=== PATIENT | male | born 1990 | race Caucasian/White ===

== ENCOUNTER 2017-01-19 11:02 | Emergency (ER) | payer MEDICAID, OTHER ==
[~2017-01-19] VITALS: Ht 177.8 cm; Wt 70.8 kg
[~2017-01-19 11:02] MED LIST: CLON0.5T4 PO; LORA-258 PO; PARO-41 PO; QUET50TA13 PO
[2017-01-19 11:11] VITALS: BP_SYST 127
[2017-01-19] MEDS ORDERED: ONDANSETRON 4 MG ODT TAB PO ONE (12:00)
[2017-01-19] MEDS ORDERED: LORazepam 2 MG/ML VIAL (FOR ER USE) IVP ONE (12:15)
[2017-01-19 12:43] LABS: EOSINOPHILS # (AUTO) 0.1 K/uL (0.0-0.4); MEAN CORPUSCULAR HEMOGLOBIN 31 pg (27-31); MONOCYTES # (AUTO) 1.1 K/uL (0.0-1.0)
[2017-01-19 12:45] LABS: CREATININE 1.08 mg/dL (0.55-1.30); POTASSIUM 3.9 mmol/L (3.5-5.1)
[2017-01-19 12:49] LABS: BASOPHILS # (AUTO) 0.2 K/uL (0.0-0.2); BASOPHILS % (AUTO) 2.8 % (0.0-2.0); EOSINOPHILS % (AUTO) 1.1 % (0.0-4.0); HEMATOCRIT 46.3 % (36-54); HEMOGLOBIN 15.4 g/dL (14.0-18.0); LYMPHOCYTES # (AUTO) 1.8 K/uL (1.0-5.5); LYMPHOCYTES % (AUTO) 23.6 % (20.5-51.5); MEAN CORPUSCULAR HGB CONC 33 % (32-36); MEAN CORPUSCULAR VOLUME 93 fL (79.0-98.0); MONOCYTES % (AUTO) 14.3 % (1.7-9.3); NEUTROPHILS # (AUTO) 4.3 K/uL (1.8-7.7); NEUTROPHILS % (AUTO) 58.2 % (40.0-70.0); PLATELET COUNT (AUTO) 276 K/uL (130-430); RED BLOOD CELL COUNT(AUTO) 4.98 MIL/uL (4.2-6.2); RED CELL DISTRIBUTION WIDTH 13.1 % (9.0-15.0); WHITE BLOOD COUNT (AUTO) 7.5 K/uL (4.8-10.8)
[2017-01-19] MEDS ORDERED: KETOROLAC TROMETHAMINE 30 MG VIAL IVP ONE (13:45)
[2017-01-19 13:48] VITALS: BP_SYST 114
== END 2017-01-19 13:48 | disposition home or self-care (01) ==
LOC: SED 11:02
DX: S80.211A Abrasion, right knee, initial encounter (principal); S50.811A Abrasion of right forearm, initial encounter; S09.90XA Unspecified injury of head, initial encounter; J45.909 Unspecified asthma, uncomplicated; F41.9 Anxiety disorder, unspecified; F32.9 Major depressive disorder, single episode, unspecified; F17.210 Nicotine dependence, cigarettes, uncomplicated; Z79.899 Other long term (current) drug therapy; V19.9XXA Pedal cyclist (driver) (passenger) injured in unspecified traffic accident, initial encounter; Y93.89 Activity, other specified; Y92.89 Other specified places as the place of occurrence of the external cause; Y99.8 Other external cause status
CPT/HCPCS: 36415; 70450; 80048; 85025; 96374; 96375; 99285; J1885; J2060; Q0162

== ENCOUNTER 2017-05-15 11:06 | Emergency (ER) | payer MEDICAID ==
[~2017-05-15] VITALS: Ht 180.3 cm; Wt 70.8 kg
[2017-05-15 11:06] VITALS: BP_SYST 127
[2017-05-15] MEDS ORDERED: KETOROLAC TROMETHAMINE 60 MG/2 ML VIAL IM ONE (11:30)
[2017-05-15 11:58] LABS: BASOPHILS % (AUTO) 0.7 % (0.0-2.0); EOSINOPHILS # (AUTO) 0.1 K/uL (0.0-0.4); EOSINOPHILS % (AUTO) 2.1 % (0.0-4.0); HEMATOCRIT 43.8 % (36-54); HEMOGLOBIN 14.7 g/dL (14.0-18.0); LYMPHOCYTES # (AUTO) 1.7 K/uL (1.0-5.5); LYMPHOCYTES % (AUTO) 30.3 % (20.5-51.5); MEAN CORPUSCULAR HEMOGLOBIN 32 pg (27-31); MEAN CORPUSCULAR HGB CONC 34 % (32-36); MEAN CORPUSCULAR VOLUME 95 fL (79.0-98.0); MONOCYTES # (AUTO) 0.6 K/uL (0.0-1.0); MONOCYTES % (AUTO) 11.3 % (1.7-9.3); NEUTROPHILS # (AUTO) 3.1 K/uL (1.8-7.7); NEUTROPHILS % (AUTO) 55.6 % (40.0-70.0); PLATELET COUNT (AUTO) 295 K/uL (130-430); RED CELL DISTRIBUTION WIDTH 12.6 % (9.0-15.0); WHITE BLOOD COUNT (AUTO) 5.5 K/uL (4.8-10.8)
[2017-05-15 11:59] LABS: CALCIUM 9.2 mg/dL (8.4-11.0); CREATININE 0.89 mg/dL (0.55-1.30)
[2017-05-15 12:04] LABS: ALBUMIN 3.7 g/dL (3.4-4.8); TOTAL BILIRUBIN 0.4 mg/dL (0.0-1.0)
[2017-05-15 13:09] VITALS: BP_SYST 128
== END 2017-05-15 13:09 | disposition home or self-care (01) ==
LOC: SED 11:06
DX: F41.9 Anxiety disorder, unspecified (principal); J45.909 Unspecified asthma, uncomplicated; F43.10 Post-traumatic stress disorder, unspecified; Z71.6 Tobacco abuse counseling
CPT/HCPCS: 36415; 71010; 80053; 84484; 85025; 85379; 93005; 96372; 99285; J1885

== ENCOUNTER 2018-03-17 01:38 | Inpatient (IN) | payer MEDICAID ==
[~2018-03-17] VITALS: Ht 175.3 cm; Wt 67.6 kg
[2018-03-17] VITALS (10 sets, daily range): BP systolic 92–124
[~2018-03-17 01:38] MED LIST changes: +CLON0.5T12 PO; -CLON0.5T4 PO; +QUET50TA PO; -QUET50TA13 PO
[2018-03-17] MEDS ORDERED: LORazepam 2 MG/ML VIAL (FOR ER USE) IVP ONE ×3 (02:00→04:30)
[2018-03-17] MEDS ORDERED: NACL 0.9% 1,000 ML IV ONE (02:00)
[2018-03-17] MEDS ORDERED: LORazepam 2 MG/ML VIAL (FOR ER USE) ONE (02:08)
[2018-03-17 02:44] LABS: HEMATOCRIT 41.5 % (36-54); MEAN CORPUSCULAR HEMOGLOBIN 32 pg (27-31); MEAN CORPUSCULAR HGB CONC 34 % (32-36); MEAN CORPUSCULAR VOLUME 96 fL (79.0-98.0); PLATELET COUNT (AUTO) 301 K/uL (130-430); RED BLOOD CELL COUNT(AUTO) 4.33 MIL/uL (4.2-6.2); RED CELL DISTRIBUTION WIDTH 12.8 % (9.0-15.0); WHITE BLOOD COUNT (AUTO) 9.3 K/uL (4.8-10.8)
[2018-03-17 02:45] LABS: CALCIUM 9.2 mg/dL (8.4-11.0); CREATININE 0.83 mg/dL (0.55-1.30); POTASSIUM 3.5 mmol/L (3.5-5.1)
[2018-03-17 02:50] LABS: ALBUMIN 3.8 g/dL (3.4-4.8); TOTAL BILIRUBIN 0.5 mg/dL (0.0-1.0)
[2018-03-17 03:20] LABS: BARBITURATE, URINE NEGATIVE (NEG <=200); BENZODIAZEPINE, URINE NEGATIVE (NEG <=150); CANNABINOID, URINE NEGATIVE (NEG <=50); COCAINE, URINE NEGATIVE (NEG <=150); METHAMPHETAMINES SCREEN,URINE NEGATIVE (NEG <=500); OPIATE, URINE NEGATIVE (NEG <=100); PHENCYCLIDINE SCREEN,URINE NEGATIVE (NEG <=25); UR TRICYCLIC ANTIDEPRESSANTS NEGATIVE (NEG <=300); URINE AMPHETAMINE NEGATIVE (NEG <=500); URINE METHADONE NEGATIVE (NEG <=200); URINE OXYCODONE SCREEN NEGATIVE (NEG <=100); URINE PROPOXYPHENE SCREEN NEGATIVE (NEG <=300)
[2018-03-17 04:15] LABS: BASOPHILS % (MANUAL) 0 % (0-2); EOSINOPHILS % (MANUAL) 1 % (0-7); LYMPHOCYTES % (MANUAL) 31 % (20-46); MONOCYTES % (MANUAL) 6 % (0-11)
[2018-03-17] MEDS ORDERED: D5W IV ONE (04:15)
[2018-03-17] MEDS ORDERED: VALPROATE SODIUM IV ONE (04:15)
[2018-03-17] MEDS ORDERED: VALPROATE SODIUM 100 MG/ML VIAL (DEPACON) IV ONE (04:25)
[2018-03-17] MEDS ORDERED: ACETAMINOPHEN 650 MG SUPP.RECT RC PRN (05:00)
[2018-03-17] MEDS ORDERED: ACETAMINOPHEN 325 MG TABLET PO PRN (12:00)
[2018-03-17] MEDS ORDERED: LORazepam 1 MG TABLET PO PRN (12:15)
[2018-03-17] MEDS: FAMOTIDINE 20 MG TABLET PO ONE ×2 (12:25→12:29)
[2018-03-17] MEDS: LORazepam 2 MG/ML VIAL IVP PRN ×2 (16:11→20:01)
[2018-03-17] MEDS: DIVALPROEX SODIUM 500 MG TABLET( DEPAKOTE) PO SCH (21:06)
[2018-03-17] MEDS: PARoxetine HCL 20 MG TABLET PO SCH ×2 (21:06→21:14)
[2018-03-17] MEDS: QUEtiapine FUMARATE 25 MG TABLET PO SCH ×2 (21:07→21:14)
[2018-03-18 07:55] VITALS: BP_SYST 93
[2018-03-18] MEDS: DIVALPROEX SODIUM 500 MG TABLET( DEPAKOTE) PO SCH (08:42)
[2018-03-18] MEDS: FAMOTIDINE 20 MG TABLET PO SCH (08:42)
[2018-03-18] MEDS ORDERED: DIVALPROEX SODIUM 250 MG TABLET(DEPAKOTE) PO ONE (11:30)
[2018-03-18] MEDS: LORazepam 2 MG/ML VIAL IVP PRN ×3 (12:14→20:56)
[2018-03-18 12:23] VITALS: BP_SYST 121
[2018-03-18 14:28] VITALS: BP_SYST 125
[2018-03-18 16:06] VITALS: BP_SYST 129
[2018-03-18 20:00] VITALS: BP_SYST 110
[2018-03-18] MEDS: DIVALPROEX SODIUM 250 MG TABLET(DEPAKOTE) PO SCH (21:02)
[2018-03-18] MEDS: PARoxetine HCL 20 MG TABLET PO SCH (21:45)
[2018-03-18] MEDS: QUEtiapine FUMARATE 25 MG TABLET PO SCH (21:46)
[2018-03-19] VITALS: BP_SYST 121
[2018-03-19 08:06] VITALS: BP_SYST 134
[2018-03-19] MEDS: LORazepam 2 MG/ML VIAL IVP PRN ×2 (09:25→16:03)
[2018-03-19] MEDS: FAMOTIDINE 20 MG TABLET PO SCH (09:40)
[2018-03-19] MEDS: DIVALPROEX SODIUM 250 MG TABLET(DEPAKOTE) PO SCH (09:41)
[2018-03-19 12:38] VITALS: BP_SYST 103
[2018-03-19 16:50] VITALS: BP_SYST 109
[2018-03-19 17:58] VITALS: BP_SYST 109
[2018-03-19] MEDS ORDERED: DIVA500T7 PO (18:15)
== END 2018-03-19 18:30 | disposition home or self-care (01) | DRG 53 ==
LOC: SED 01:38 → SIC 04:56 → STU 15:12 → SMU 03-19 16:34
PROVIDERS: ADMIT Internal Medicine; ATTEND Internal Medicine
DX: G40.909 Epilepsy, unspecified, not intractable, without status epilepticus (principal); E87.1 Hypo-osmolality and hyponatremia; F32.9 Major depressive disorder, single episode, unspecified
CPT/HCPCS: 36415; 70450-TC; 80053; 80164-TC; 80307; 85007; 85027; 87081; 95816; 96361; 96365; 96375; 96376; 99285; J2060; J7030

== ENCOUNTER 2018-03-19 20:34 | Inpatient (IN) | payer MEDICAID ==
[~2018-03-19] VITALS: Ht 180.3 cm; Wt 68.0 kg
[~2018-03-19 20:34] MED LIST changes: +DIVA500T7 PO
[2018-03-19 20:36] VITALS: BP_SYST 118
--- NOTE | 2018-03-19 20:36 | NUR ---
Placed in room 5 . Placed on cardiac nurse specialist, blood pressure machine and pulse oximeter. To gown for exam. Side rails up. Report given to Evita CHANEY.
--- NOTE | 2018-03-19 20:38 | NUR ---
ER Dr. Mayfield at bedside examining patient.
[2018-03-19] MEDS ORDERED: NACL 0.9% 1,000 ML IV ONE (20:41)
[2018-03-19] MEDS ORDERED: ASPIRIN 81 MG TAB.CHEW PO ONE (21:00)
[2018-03-19 21:12] LABS: BASOPHILS # (AUTO) 0.1 K/uL (0.0-0.2); BASOPHILS % (AUTO) 1.3 % (0.0-2.0); EOSINOPHILS # (AUTO) 0.1 K/uL (0.0-0.4); EOSINOPHILS % (AUTO) 1.8 % (0.0-4.0); HEMATOCRIT 46.6 % (36-54); LYMPHOCYTES # (AUTO) 1.3 K/uL (1.0-5.5); LYMPHOCYTES % (AUTO) 20.7 % (20.5-51.5); MEAN CORPUSCULAR HEMOGLOBIN 31 pg (27-31); MEAN CORPUSCULAR HGB CONC 32 % (32-36); MEAN CORPUSCULAR VOLUME 96 fL (79.0-98.0); MONOCYTES # (AUTO) 0.8 K/uL (0.0-1.0); MONOCYTES % (AUTO) 12.2 % (1.7-9.3); NEUTROPHILS # (AUTO) 4.1 K/uL (1.8-7.7); PLATELET COUNT (AUTO) 337 K/uL (130-430); RED BLOOD CELL COUNT(AUTO) 4.87 MIL/uL (4.2-6.2); RED CELL DISTRIBUTION WIDTH 12.7 % (9.0-15.0); WHITE BLOOD COUNT (AUTO) 6.4 K/uL (4.8-10.8)
[2018-03-19 21:17] LABS: CALCIUM 10.1 mg/dL (8.4-11.0); CHLORIDE 105 mmol/L (98-107); CREATININE 1.04 mg/dL (0.55-1.30); GLUCOSE 96 mg/dL (70-99); POTASSIUM 4.9 mmol/L (3.5-5.1); SODIUM SERUM 135 mmol/L (136-145); UREA NITROGEN, BLOOD 21 mg/dL (8-21)
[2018-03-19 21:21] LABS: ALANINE AMINOTRANSFERASE 20 U/L (12-78); ALBUMIN 4.1 g/dL (3.4-4.8); ANION GAP < 3 (5-15); ASPARTATE AMINOTRANSFERASE 12 U/L (10-37); GFR AFRICAN AMERICAN 109 mL/min (>90); TOTAL BILIRUBIN 0.2 mg/dL (0.0-1.0); VALPROIC ACID 47 ug/mL (50-100)
--- NOTE | 2018-03-19 21:25 | NUR ---
patient brought in by [facility] s/p seizure. per school representatives patient had two witnessed tonic clonic seizures. patient is now alert, oriented, no recollection of seizure or travel to hospital. is on phone with family.
[2018-03-19] MEDS ORDERED: DIVALPROEX SODIUM 250 MG TABLET(DEPAKOTE) PO ONE (21:45)
[2018-03-19 22:07] LABS: BARBITURATE, URINE NEGATIVE (NEG <=200); METHAMPHETAMINES SCREEN,URINE NEGATIVE (NEG <=500); URINE AMPHETAMINE NEGATIVE (NEG <=500); URINE METHADONE NEGATIVE (NEG <=200)
[2018-03-19 22:08] LABS: BENZODIAZEPINE, URINE POSITIVE (NEG <=150); CANNABINOID, URINE NEGATIVE (NEG <=50); COCAINE, URINE NEGATIVE (NEG <=150); OPIATE, URINE NEGATIVE (NEG <=100); PHENCYCLIDINE SCREEN,URINE NEGATIVE (NEG <=25); UR TRICYCLIC ANTIDEPRESSANTS NEGATIVE (NEG <=300); URINE OXYCODONE SCREEN NEGATIVE (NEG <=100); URINE PROPOXYPHENE SCREEN NEGATIVE (NEG <=300)
--- NOTE | 2018-03-19 22:20 | NUR ---
dr hernández speaking to dr yang regarding patient status
--- NOTE | 2018-03-19 22:36 | NUR ---
Patient calmly resting in ER bed, no signs of distress noted. Vital signs are stable at this time; patient also denies any other complaints.
--- NOTE | 2018-03-19 22:40 | NUR ---
ADMISSION NOTE Received patient from ER via azul, received report from LUBA CHANEY. Patient admitted with diagnosis of SEUIZURES. Patient oriented to hospital routine, call light, toileting and safety-patient verbalized understanding.
[2018-03-19 22:41] VITALS: BP_SYST 123
[2018-03-19 22:50] VITALS: BP_SYST 123
[2018-03-19] MEDS ORDERED: HYDROcodone/ACETAMIN 10-325 MG TAB PO PRN (23:00)
[2018-03-19] MEDS ORDERED: HYDROcodone/ACETAMIN 5-325 MG TAB (NORCO/ VICODIN) PO PRN (23:00)
[2018-03-19] MEDS ORDERED: ONDANSETRON HCL 4 MG/2 ML VIAL IVP PRN (23:00)
[2018-03-19] MEDS ORDERED: ACETAMINOPHEN 325 MG TABLET PO PRN (23:00)
--- NOTE | 2018-03-19 23:16 | NUR ---
Bed alarm refused: Patient refused bed alarm despite education regarding patient safety. Bed is locked in lowest position, side rails raised, seizure pads applied. Seizure, safety, and fall precautions remain in place. Call light is with patient. Will continue monitoring.
--- NOTE | 2018-03-19 23:20 | NUR ---
CONSULT CONSULT CALLED FOR DR.ALI ROSS I SPOKE WITH PRASHANTH [employer] REASON FOR CONSULT: SEIZURES REQUESTING CONSULT: SHAWN CRAIG [employer] MUTUAL TICKET CHECKER PHONE NUMBER: [phone] Addendum: 03/19/18 at 2329 by Sri Samuels SD/ REQUESTING CONSULT: SHAWN GARCIA
--- NOTE | 2018-03-19 23:55 | NUR ---
Patient admitted to care of dr hernández, med surg tele unit, room 102. Belongings list completed, all belongings sent with patient. friend at bedside. patient is stable, alert, oriented, no signs of distress. Summary report printed. Report given at bedside.
--- NOTE | 2018-03-20 00:05 | NUR ---
Spoke with Dr. Sully Burk: Clarified Ativan orders with MD as patient has 1 MG Ativan IVP and 0.5 MG Ativan PO ordered, both with PRN reason for anxiety. MD ordered to change PRN reason for 1 MG Ativan IVP to "Seizures". RN will edit order.
--- NOTE | 2018-03-20 00:21 | NUR ---
Seizure: Patient had a seizure at this time with a duration of 2 minutes 40 seconds. 1 MG Ativan IVP administered per MD order to patient's left AC IV site. Seizure ended upon administration of medication. Following the seizure, patient is alert and oriented x4; however, patient is unable to recollect memories from the past several days. Safety, fall, seizure precautions in place. Will continue monitoring. Addendum: 03/20/18 at 0052 by Kin Sarah RN Per charge nurse Uriel RN, patient showed no changes on the tele monitor.
[2018-03-20] MEDS: LORazepam 2 MG/ML VIAL IVP PRN ×3 (00:24→17:48)
--- NOTE | 2018-03-20 02:14 | NUR ---
Rounds: Patient is sleeping, does not show any signs or symptoms of acute distress. Call light is with patient. Safety, seizure, fall precautions in place. Will continue monitoring.
--- NOTE | 2018-03-20 04:02 | NUR ---
Rounds: Patient is sleeping, no acute distress noted. Breathing even and unlabored. Seizure, safety, fall, contact iso precautions in place. Will continue monitoring.
--- NOTE | 2018-03-20 06:09 | NUR ---
Closing note: Patient is sleeping, no acute distress exhibited. All needs met and attended to. Safety, seizure, fall precautions in place. Will continue monitoring.
[2018-03-20] MEDS: NORMAL SALINE 5 ML DISP.SYRIN IVF SCH ×3 (06:52→21:41)
[2018-03-20 06:53] LABS: HEMATOCRIT 44.3 % (36-54); HEMOGLOBIN 14.5 g/dL (14.0-18.0); MEAN CORPUSCULAR HEMOGLOBIN 32 pg (27-31); MEAN CORPUSCULAR HGB CONC 33 % (32-36); MEAN CORPUSCULAR VOLUME 97 fL (79.0-98.0); PLATELET COUNT (AUTO) 306 K/uL (130-430); RED BLOOD CELL COUNT(AUTO) 4.58 MIL/uL (4.2-6.2); RED CELL DISTRIBUTION WIDTH 12.9 % (9.0-15.0); WHITE BLOOD COUNT (AUTO) 6.8 K/uL (4.8-10.8)
[2018-03-20 07:29] LABS: CREATININE 0.83 mg/dL (0.55-1.30); POTASSIUM 3.6 mmol/L (3.5-5.1)
--- NOTE | 2018-03-20 07:34 | NUR ---
PATIENT IS A/OX4. NO SZ ACTIVITY AT THIS TIME, SR ON MONITOR. IV ON LEFT AC, #18, SL. SZ PRECUATIONS ARE MAINTAINED; PATIENT IS ADVISED TO STAY IN BED, BED ALARM ON, BED LOCKED AT THE LOWEST POSITION, WILL CONTINUE TO MONITOR.
[2018-03-20 08:00] VITALS: BP_SYST 124
[2018-03-20] MEDS ORDERED: DIVALPROEX SODIUM 250 MG TABLET(DEPAKOTE) PO SCH (09:00)
--- NOTE | 2018-03-20 09:48 | NUR ---
Patient is seen ambulating to the bathroom. He is instructed to call the nurse when he has to go to bathroom. Bed alarm on.
[2018-03-20 10:09] LABS: BASOPHILS % (MANUAL) 0 % (0-2); EOSINOPHILS % (MANUAL) 6 % (0-7); LYMPHOCYTES % (MANUAL) 31 % (20-46); MONOCYTES % (MANUAL) 11 % (0-11)
[2018-03-20 11:29] VITALS: BP_SYST 110
--- NOTE | 2018-03-20 12:21 | NUR ---
Patient has a seizure that last about 3 minutes. Ativan 1mg is given IVP. Will reassess.
[2018-03-20 15:08] VITALS: BP_SYST 122
--- NOTE | 2018-03-20 17:30 | NUR ---
PATIENT HAD TWO SEIZURES WITH THE LAST 15 MINUTES. FIRST ONE LASTED ABOUT 5 MINUTES FROM [id number]; SECOND LASTED FROM [id number]. V/S STABLE AT THIS TIME. PATIENT IS ASLEEP.
--- NOTE | 2018-03-20 18:11 | NUR ---
PAGED PAGED ALLYN CRAIG AT [phone] SPOKE WITH DIMA.
--- NOTE | 2018-03-20 18:18 | NUR ---
PATIENT HAD ANOTHER SEIZURE LASTING FROM [id number]. V/S IS STABLE DURING THIS TIME. PATIENT IS ASLEEP AND SOMNOLENT IN THE TIME.
--- NOTE | 2018-03-20 18:48 | NUR ---
DR. BARNES CALLED BACK. ORDERS WERE GIVEN.
--- NOTE | 2018-03-20 18:54 | NUR ---
SITTER IS ORDERED BY DR. BARNES, BUT [employer] FINANCIAL APPLICATION DEVELOPER IS UNABLE TO FIND A SITTER AT THIS TIME. CHARGE NURSE IS AWARE.
[2018-03-20 19:10] VITALS: BP_SYST 112
--- NOTE | 2018-03-20 19:10 | NUR ---
Initial Notes Received patient in bed eating with friends around. Patient is awake alert oriented x4. No distress noted at this time. IV noted to L a/c g18 no infiltrate and with good blood return. Call light in reach with seizure pads to side rails intact. Discuss plan of care with patient and verbalize understanding, will cont to monitor.
[2018-03-20] MEDS: QUEtiapine FUMARATE 25 MG TABLET PO SCH (20:03)
[2018-03-20] MEDS: DIVALPROEX SODIUM 500 MG TABLET( DEPAKOTE) PO SCH (20:04)
[2018-03-20] MEDS ORDERED: PARoxetine HCL 20 MG TABLET PO SCH (21:00)
--- NOTE | 2018-03-20 21:10 | NUR ---
Move to Rm 105A Patient was move to 105 close to nursing station for safety. No c/o pain and no s/s of any distress noted. Call light in reach, bed alarm on, will cont to monitor.
--- NOTE | 2018-03-20 23:10 | NUR ---
Rounds Patient is resting at this time. No c/o pain and no s/s seizure noted. Call light in reach, seizure pads in place, will cont to monitor.
[2018-03-21] VITALS (13 sets, daily range): BP systolic 93–118
--- NOTE | 2018-03-21 01:10 | NUR ---
Rounds Patient is resting comfortably in bed at this time. Refuse any assistance at this time. No c/o pain and no s/s of any distress noted. Call light in reach, will cont to monitor.
--- NOTE | 2018-03-21 03:10 | NUR ---
Rounds Patient is resting at this time. No c/o pain and no s/s of any distress noted. Call light in reach, will cont to monitor.
[2018-03-21] MEDS: NORMAL SALINE 5 ML DISP.SYRIN IVF SCH ×3 (05:23→22:03)
--- NOTE | 2018-03-21 05:29 | NUR ---
Episode of seizure Patient had a 3 mins seizure from 520 to 523. Patient's BUE and BLE was hard like on contracted position during the seizure. This nurse made sure patient was safe not to hit his head with hard object, seizure pads intact. Patient went back to sleep after. Will cont to monitor patient.
--- NOTE | 2018-03-21 06:39 | NUR ---
End of shift notes Patient is resting in bed at this time with sitter at bedside. No s/s of any distress noted. All needs met and anticipated by noc nurse. Bed alarm on, seizure pads intact with side rails up x3 and bed in low position. Will endorse to AM shift.
--- NOTE | 2018-03-21 07:51 | NUR ---
Opening Note received report from clinical specialist RN, pt resting in bed, A&Ox4, respirations even and unlabored on room air, denies any pain or SOB, no acute distress noted, IV site clean, dry, and intact, side rails padded, pt educated on use of call light and asked to call for assistance, pt verbalized understanding, call light in reach, bed in low position, bed alarm on, room close to nurses station, sitter at bedside, fall, aspiration, and seizure precautions in place.
[2018-03-21] MEDS: DIVALPROEX SODIUM 500 MG TABLET( DEPAKOTE) PO SCH (08:11)
--- NOTE | 2018-03-21 08:16 | NUR ---
Medication pt educated on medication use and side effects, pt verbalized understanding, tolerated medication administration well, no acute distress noted, pt sitting up in bed eating breakfast, sitter at bedside, fall, aspiration, and seizure precautions in place.
[2018-03-21 08:36] LABS: RED BLOOD CELL COUNT(AUTO) 4.61 MIL/uL (4.2-6.2)
[2018-03-21 08:38] LABS: BASOPHILS # (AUTO) 0.2 K/uL (0.0-0.2); BASOPHILS % (AUTO) 3.1 % (0.0-2.0); EOSINOPHILS # (AUTO) 0.3 K/uL (0.0-0.4); EOSINOPHILS % (AUTO) 4.2 % (0.0-4.0); HEMATOCRIT 44.4 % (36-54); HEMOGLOBIN 14.2 g/dL (14.0-18.0); LYMPHOCYTES # (AUTO) 2.2 K/uL (1.0-5.5); LYMPHOCYTES % (AUTO) 29.6 % (20.5-51.5); MEAN CORPUSCULAR HEMOGLOBIN 31 pg (27-31); MEAN CORPUSCULAR HGB CONC 32 % (32-36); MEAN CORPUSCULAR VOLUME 96 fL (79.0-98.0); MONOCYTES # (AUTO) 0.7 K/uL (0.0-1.0); NEUTROPHILS % (AUTO) 54.1 % (40.0-70.0); PLATELET COUNT (AUTO) 300 K/uL (130-430); RED CELL DISTRIBUTION WIDTH 12.8 % (9.0-15.0); WHITE BLOOD COUNT (AUTO) 7.4 K/uL (4.8-10.8)
[2018-03-21 08:51] LABS: CALCIUM 9.3 mg/dL (8.4-11.0); CREATININE 0.82 mg/dL (0.55-1.30); POTASSIUM 4.4 mmol/L (3.5-5.1)
--- NOTE | 2018-03-21 09:27 | NUR ---
RN Rounds pt sitting up, friend at bedside, pt denies any pain, no seizure activity observed at this time, sitter at bedside, fall, aspiration, and seizure precautions in place.
--- NOTE | 2018-03-21 10:20 | NUR ---
RN Rounds pt resting in bed, friend at bedside, pt denies any pain, no acute distress noted, no seizure activity noted, fall, aspiration, and seizure precautions in place.
--- NOTE | 2018-03-21 11:54 | NUR ---
RN Rounds pt sleeping in bed, respirations even and unlabored, no acute distress noted, no seizure activity noted, sitter at bedside, fall, aspiration, and seizure precautions in place.
[2018-03-21] MEDS: LORazepam 2 MG/ML VIAL IVP PRN (13:35)
--- NOTE | 2018-03-21 13:40 | NUR ---
Seizure pt having seizure activity, timed from 2650-9556, upper and lower extremities contracted inward, ativan 2mg IVP given, seizure activity stopped, pt opened eyes, pt verbal and responding to commands, BP 112/61, HR 87, O2Sat 98%, respirations 17, no acute distress noted, Dr. Martinez doing rounds, informed of pt valproic acid level 122 and recent seizure, per MD orders to transfer pt to ICU.
--- NOTE | 2018-03-21 14:15 | NUR ---
transfer to ICU pt taken to ICU, report given to Carmita RN, pt stable, tele monitor removed, pt on ICU monitors, pt stable, pt called sister Jayce and notified her of his transfer to ICU bed 8, all belongings sent with pt.
--- NOTE | 2018-03-21 14:15 | NUR ---
Transfer to ICU Received pt AAOx4, able to verbalize needs. Respirations even and unlabored on RA. Pt states no pain or distress at this time. Pt states, "I don't remember anything before my seizure," and "Paxil makes me go crazy." Skin warm and dry. IV SL site intact, patent, no infiltration noted. Oriented pt to room and call light. Padded side rails in place for seizure precaution. Bed locked in lowest position. Call light in reach. Will continue to monitor.
[2018-03-21] MEDS: VALPROATE SODIUM 500 MG in D5W 100 ML IV SCH ×2 (15:31→22:03)
--- NOTE | 2018-03-21 16:28 | NUR ---
Pt sitting in bed conversing with friends. Pt states no pain or distress at this time. IV site intact, patent, no infiltration noted.
--- NOTE | 2018-03-21 18:18 | NUR ---
PAGED I PAGED DR. SHAWN Virk @ [phone] SEND A MESSAGE LETTING HIM KNOW THAT HIS PATIENT VALENTIN TY IS IN ICU CHARGE NURSE REQUESTED FOR ME TO CALL SHAWN CRAIG
--- NOTE | 2018-03-21 19:15 | NUR ---
Closing/Endorsement Pt asleep, arousable. IV site intact, patent, no infiltration noted. Had 100% of dinner. Bed locked in lowest position. Call light in reach. Endorsed plan of care to Vickie CHANEY.
--- NOTE | 2018-03-21 19:17 | NUR ---
OPENING NOTE Received patient resting on the bed with eyes closed. No acute distress. Respiration even and unlabored. Skin warm and dry to touch. SL intact to RFA, no redness, no swelling. Family at bedside. Safety measure maintain. Bed locked in low position, padded side rails up, bed alarm on. Call light within reached. Will continue to monitor.
[2018-03-21] MEDS: QUEtiapine FUMARATE 25 MG TABLET PO SCH (21:15)
[2018-03-21] MEDS: levETIRAcetam 1,000 MG in NS 100 ML IV SCH (21:15)
--- NOTE | 2018-03-21 21:15 | NUR ---
SCHEDULE MED GIVEN Patient resting on the bed. No acute distress. Respiration even and unlabored. Schedule med given. Educated the medication Keppra, the indication and possible side effect, verbally understanding. Safety measure maintained. Bed locked in low position, padded side rails up. Call light within reached. Continue to monitor.
--- NOTE | 2018-03-21 23:00 | NUR ---
PATIENT'S FRIENDS VISITED
[2018-03-22] VITALS (23 sets, daily range): BP systolic 88–119
--- NOTE | 2018-03-22 00:35 | NUR ---
ROUND Patient resting on the bed with eyes closed. No acute distress. IV intact. Padded side rails up, bed locked in low position. Call light within reached. Continue to monitor.
--- NOTE | 2018-03-22 03:27 | NUR ---
ROUND Patient sleeping at this time. No acute distress. Respiration even and unlabored. VS stable. No seizure activity. Seizure precaution maintained. Padded side rails up, bed locked in low position, bed alarm on. Call light within reached. Continue to monitor.
[2018-03-22] MEDS: VALPROATE SODIUM 500 MG in D5W 100 ML IV SCH ×3 (05:39→22:01)
[2018-03-22] MEDS: NORMAL SALINE 5 ML DISP.SYRIN IVF SCH ×3 (05:39→22:02)
[2018-03-22 06:47] LABS: BASOPHILS # (AUTO) 0.1 K/uL (0.0-0.2); BASOPHILS % (AUTO) 1.9 % (0.0-2.0); EOSINOPHILS # (AUTO) 0.3 K/uL (0.0-0.4); EOSINOPHILS % (AUTO) 4.8 % (0.0-4.0); HEMATOCRIT 43.7 % (36-54); HEMOGLOBIN 14.1 g/dL (14.0-18.0); LYMPHOCYTES # (AUTO) 2.4 K/uL (1.0-5.5); LYMPHOCYTES % (AUTO) 40.4 % (20.5-51.5); MEAN CORPUSCULAR HEMOGLOBIN 31 pg (27-31); MEAN CORPUSCULAR HGB CONC 32 % (32-36); MEAN CORPUSCULAR VOLUME 97 fL (79.0-98.0); MONOCYTES # (AUTO) 0.6 K/uL (0.0-1.0); MONOCYTES % (AUTO) 9.8 % (1.7-9.3); NEUTROPHILS # (AUTO) 2.5 K/uL (1.8-7.7); NEUTROPHILS % (AUTO) 43.1 % (40.0-70.0); PLATELET COUNT (AUTO) 291 K/uL (130-430); RED BLOOD CELL COUNT(AUTO) 4.52 MIL/uL (4.2-6.2); RED CELL DISTRIBUTION WIDTH 12.7 % (9.0-15.0); WHITE BLOOD COUNT (AUTO) 5.9 K/uL (4.8-10.8)
[2018-03-22 06:50] LABS: CALCIUM 8.9 mg/dL (8.4-11.0); CREATININE 0.94 mg/dL (0.55-1.30); POTASSIUM 3.4 mmol/L (3.5-5.1)
--- NOTE | 2018-03-22 07:15 | NUR ---
REPORT REPORT GIVEN BY NIGHT NURSE. PT. IS SLEEPING, IV FLUIDS INFUSING AT KVO RATE. NO SEIZURE ACTIVITY NOTED, SEIZURE PADS IN PLACE. BED ALARM IS ON, SIDE-RAILS UP, BED IN LOW POSITION.
--- NOTE | 2018-03-22 07:29 | NUR ---
CLOSING NOTE Received patient resting on the bed with eyes closed. No acute distress. Respiration even and unlabored. Skin warm and dry to touch. SL intact to RFA, no redness, no swelling. No seizure activity during shift noted. All needs met. Safety measure maintain. Bed locked in low position, padded side rails up, bed alarm on. Call light within reached. Endorsed to morning SHIV Breaux to continue plan of care.
--- NOTE | 2018-03-22 08:00 | NUR ---
SLEEPING SLEEPING, WHEN ASKED IF HE WANTED BREAKFAST, RESPONSED UH-HUH, BUT DID NOT SIT UP TO EAT.
--- NOTE | 2018-03-22 08:26 | NUR ---
SLEEPING CONT TO SLEEP, DID NOT RESPOND WHEN ASKED REGARDING BREAKFAST.
--- NOTE | 2018-03-22 08:45 | NUR ---
AWAKE SAT UP TO EAT MEAL. ABLE TO OPEN CONTAINERS AND FEED SELF. NO DIFF SWALLOWING. TOOTH BRUSH AND TOOTH PASTE PROVIDED. CONVERSED ABOUT SCHOOL AND WHERE HE IS LIVING.
[2018-03-22] MEDS: levETIRAcetam 1,000 MG in NS 100 ML IV SCH ×2 (08:55→21:59)
--- NOTE | 2018-03-22 09:30 | NUR ---
IV SITE SWELLING NOTED AT IV SITE. IV DC'D. NEW IV INSERTED LEFT FOREARM, #22 ANGIOCATH. GOOD BLOOD RETURN.
--- NOTE | 2018-03-22 10:00 | NUR ---
VOIDED VOIDED 550 CC USING URINAL.
--- NOTE | 2018-03-22 10:50 | NUR ---
RESTLESS RESTING ON LEFT SIDE, INTERMITTENT MUSCLE TWITCHING RESEMBLING SHIVERING NOTED. TURNED TO RIGHT SIDE, PULLED OFF GOWN PULSE OX AND BP CUFF. DOES NOT ACKNOWLEDGE NURSE OR ANSWER QUESTIONS. RESTLESS ACTIVITY CONTINUED FOR 20 MINUTES, THEN SAT UP AND SPOKE TO NURSE.
--- NOTE | 2018-03-22 12:55 | NUR ---
VISITOR VISITOR AT BEDSIDE. PT CONVERSING W VISITOR, REQUESTS SOMETHING TO HELP HIS RELAX.
[2018-03-22] MEDS: LORazepam 1 MG TABLET PO PRN (12:58)
--- NOTE | 2018-03-22 13:00 | NUR ---
MEDICATED MEDICATED W ATIVAN 0.5MG PER REQUEST. 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
--- NOTE | 2018-03-22 14:15 | NUR ---
MRI TO MRI VIA W/C W MONITOR FOR MRI HEAD. ACCOMP BY NURSE.
[2018-03-22] MEDS ORDERED: GADOPENTETATE DIMEGLUMINE 15 ML VIAL IV ONE (14:40)
--- NOTE | 2018-03-22 15:45 | NUR ---
RETURNED FROM MRI RETURNED FROM MRI, SEIZURE ACTIVITY WAS NOTED DURING MRI, PT STIFFENED AND HAD TREMORS IN ARMS, CLENCHES HANDS AND DOES NOT RESPOND TO COMMANDS. EPISODE LASTED APPROX 3 MIN. THEN PT WAS ABLE TO RESPOND AND PROCEDE W MRI.
--- NOTE | 2018-03-22 17:15 | NUR ---
VISITOR VISITOR AT BEDSIDE. HAS NO COMPLAINTS OR REQUESTS. NO SEIZURE ACTIVITY.
--- NOTE | 2018-03-22 17:55 | NUR ---
DR. BARNES. DR. BARNES EXAMINED AND ORDERED. WOULD LIKE PT TO GO TO [facility] ON AN EPILEPSY UNIT FOR 24 HR. EEG.
--- NOTE | 2018-03-22 19:10 | NUR ---
SEIZURE VISITOR CALLED THAT PT WAS HAVING A SEIZURE. PT IS ON RIGHT SIDE HAVING CLONIC/TONIC MOVEMENTS, DOES NOT RESPOND TO VERBAL STIMULUS. HEAD PROTECTED FROM SIDE RAIL W SEIZURE PAD. SEIZURE LASTED 4 MINUTES. PT THEN WAS AROUSABLE BUT NOT SPEAKING. PULLED OFF MONITOR LEADS, MOVED SELF IN BED. REPORT GIVEN TO Nini BARNES RN WHO IS AT BEDSIDE TO ASSUME CARE.
--- NOTE | 2018-03-22 19:53 | NUR ---
PATIENT is non - compliant pulling off 02 SAT PULLING OFF & REFUSING BP CUFF PULLING OFF & REFUSING CARDIAC LEADS procedures explained , patient still REFUSE family is at the bedside .
--- NOTE | 2018-03-22 20:00 | NUR ---
LORAZEPAM 2 MG IVP administer for SEIZURE control as ordered , family father is @ the bedside .
[2018-03-22] MEDS: LORazepam 2 MG/ML VIAL IVP PRN (20:03)
[2018-03-22] MEDS: QUEtiapine FUMARATE 25 MG TABLET PO SCH (20:19)
--- NOTE | 2018-03-22 21:00 | NUR ---
PATIENT AWAKE ASSIST OUT OF BED TO REST ROOM AMBULATORY , BOWEL MOVEMENT NOTED assist back to bed FALL MEASURES EFFECTIVE .
[2018-03-22] MEDS ORDERED: VALPROATE SODIUM 100 MG/ML VIAL (DEPACON) IV ONE (22:01)
--- NOTE | 2018-03-22 22:35 | NUR ---
NORCO 10/325 MG PO GIVEN FOR GENERAL ACUTE PAIN 12/22 family is @ the bedside .
--- NOTE | 2018-03-22 23:33 | NUR ---
SEIZURE PRECAUTIONS TEACHING BED TO LOW POSITION PADDED SIDE RAILS CALL [place] WITH PATIENT , MEDICATIONS TOLERATING .
[2018-03-23] VITALS (13 sets, daily range): BP systolic 108–132
--- NOTE | 2018-03-23 00:18 | NUR ---
REFUSING , PATIENT TEARING OFF LEADS BP CUFF & REFUSING 02 SENSOR REFUSING .
[2018-03-23] MEDS: LORazepam 1 MG TABLET PO PRN (00:49)
[2018-03-23] MEDS: LORazepam 2 MG/ML VIAL IVP PRN ×2 (02:03→07:25)
--- NOTE | 2018-03-23 02:22 | NUR ---
PATIENT NOTED TO HAVE MILD SEIZURE CLONIC / TONIC MILD TREMORS , IS ALERT & VERBALLY RESPONSIVE 30 SECOND DURATION / .
--- NOTE | 2018-03-23 02:23 | NUR ---
ATIVAN 2 MG IVP GIVEN ORDERED .
--- NOTE | 2018-03-23 02:24 | NUR ---
PATIENT AWAKE ALERT SITTING UP IN BED USING LAP TOP COMPUTER .
[2018-03-23] MEDS ORDERED: VALPROATE SODIUM 100 MG/ML VIAL (DEPACON) IV ONE (05:53)
[2018-03-23] MEDS: NORMAL SALINE 5 ML DISP.SYRIN IVF SCH (05:58)
[2018-03-23] MEDS: VALPROATE SODIUM 500 MG in D5W 100 ML IV SCH (05:58)
[2018-03-23 06:23] LABS: CALCIUM 9.1 mg/dL (8.4-11.0); CREATININE 0.84 mg/dL (0.55-1.30); POTASSIUM 3.8 mmol/L (3.5-5.1)
--- NOTE | 2018-03-23 06:54 | NUR ---
New IV Re start left F/A 22 GAUGE DEPACON 500 MG IVPB infusing as ordered no infiltration noted patient tolerated .
[2018-03-23 07:02] LABS: BASOPHILS # (AUTO) 0.1 K/uL (0.0-0.2); BASOPHILS % (AUTO) 1.5 % (0.0-2.0); EOSINOPHILS # (AUTO) 0.2 K/uL (0.0-0.4); EOSINOPHILS % (AUTO) 3.9 % (0.0-4.0); HEMATOCRIT 40.5 % (36-54); HEMOGLOBIN 13.5 g/dL (14.0-18.0); LYMPHOCYTES # (AUTO) 2.2 K/uL (1.0-5.5); LYMPHOCYTES % (AUTO) 36.2 % (20.5-51.5); MEAN CORPUSCULAR HEMOGLOBIN 32 pg (27-31); MEAN CORPUSCULAR HGB CONC 33 % (32-36); MEAN CORPUSCULAR VOLUME 96 fL (79.0-98.0); MONOCYTES # (AUTO) 0.7 K/uL (0.0-1.0); MONOCYTES % (AUTO) 12.4 % (1.7-9.3); NEUTROPHILS # (AUTO) 2.8 K/uL (1.8-7.7); PLATELET COUNT (AUTO) 287 K/uL (130-430); RED BLOOD CELL COUNT(AUTO) 4.22 MIL/uL (4.2-6.2); RED CELL DISTRIBUTION WIDTH 12.8 % (9.0-15.0)
--- NOTE | 2018-03-23 07:20 | NUR ---
AM ROUNDS: Patient removed blood pressure cuff. Educated patient on importance of leaving blood pressure cuff on to monitor him. No signs or symptoms of distress noted.
--- NOTE | 2018-03-23 07:21 | NUR ---
SEIZURE: Seizure lasting about 1 minute witnessed. Patient medicated per orders.
--- NOTE | 2018-03-23 08:19 | NUR ---
UMESH PLANNING Order to transfer to [facility] for epilepsy unit, needs 24hr EEG. Called & informed Mariah @ [facility], ph [phone], states [facility] not contracted going to check if have 24hr EEG services @ [facility]. Addendum: 03/23/18 at 1239 by Mariah Ruiz RN Later in morning received call from Mariah that pt going to [facility] that going to call once gets bed. Spoke w pt @ bedside, agreeable w transfer to [facility]. Informed pt's nurse Dhruv, he is calling to update Dr Martinez. Received call back from Mariah @ [facility], ph [phone], pt accepted to [facility] ICU bed 269A # for report [phone], Hospitalist Dr Dhruv George, Cafeteria Team Leader Dr Gaffney. Pt can go ACLS via [facility] ambulance w auth #[id number], ambulance to stop by ER admitting first. Updated umesh Montenegro enterprise resource planner. Spoke w pt @ bedside & updated, agreeable w transfer to [place] @ 115pm, states to inform father. Called pt's father, Arely Tong ph [phone], no answer. Informed pt no answer if ok to leave msg, states ok to leave msg. Called & left msg w father that pt transferring w transfer information.
[2018-03-23] MEDS ORDERED: VALPROATE SODIUM 500 MG in D5W 100 ML IV ONE (08:45)
--- NOTE | 2018-03-23 08:59 | NUR ---
IV PLACEMENT: # 18 gauge angiocath placed to right forearm. Use of asceptic technique. Opsite placed over site. Blood return noted. Flushed with 5 cc of normal saline. No evidence of infiltration noted. Patient tolerated well.
[2018-03-23] MEDS: levETIRAcetam 1,000 MG in NS 100 ML IV SCH (09:04)
--- NOTE | 2018-03-23 09:56 | NUR ---
SEIZURE: Seizure activity noted lasting 30 seconds.
--- NOTE | 2018-03-23 09:57 | NUR ---
NONCOMPLIANT: Patient continues to remove all equipment after educating him. Leads, pulse oximeter and blood pressure cuff were removed.
--- NOTE | 2018-03-23 10:03 | NUR ---
PAGED: Dr. Burk paged at [phone] regarding patient non-compliance.
--- NOTE | 2018-03-23 10:40 | NUR ---
RESTRAINTS REMOVED: Patient is now compliant, states that was his other personality, "Jason", removing the lines.
--- NOTE | 2018-03-23 10:42 | NUR ---
SEIZURE ACTIVITY: Seizure activity noted lasting 30 seconds.
--- NOTE | 2018-03-23 11:05 | NUR ---
Discharge Planning: UMESH prepared patient referral packet, per CM waiting for a bed at [facility]. [facility] will follow up to set up transportation. Addendum: 03/23/18 at 1223 by Moni Estrada DP UM[facility] arranged transportation for pt with [facility] ([phone]) Auth# [id number], to [facility] ([phone]) room 269A patient to be admitted through ER admitting.
--- NOTE | 2018-03-23 12:27 | NUR ---
REPORT: Report given to SHIV Lemus at [facility].
--- NOTE | 2018-03-23 12:36 | NUR ---
NONCOMPLIANT ACTIVITY: Patient got out of bed without assistance to try to ambulate to the room toilet. I went into the room to assist him and informed him to ask for assistance before trying to ambulate for his safety. He replied with, "What am I going to do? Shit in the bed?" Addendum: 03/23/18 at 1313 by Christofer Alvarado RN Patient also removed all monitoring equipment.
--- NOTE | 2018-03-23 13:00 | NUR ---
REPORT: Given to EMT for transport.
--- NOTE | 2018-03-23 13:15 | NUR ---
PT TRANSFERRED Report given to Mariah at [facility]. Transfer packet with Transfer Orders and Medication Reconciliation form given to EMT with report. Exitcare provided. [facility] ID band removed, replaced with ID band with pt's name and . All belongings sent with patient. Patient left floor via gurney escorted by EMT in no distress.
[2018-03-23] MEDS ORDERED: VALPROATE SODIUM 750 MG in D5W 100 ML IV SCH (14:00)
== END 2018-03-23 13:16 | disposition short-term general hospital (02) | DRG 53 ==
LOC: SED 20:34 → STU 22:24 → SIC 03-21 14:05
PROVIDERS: ADMIT Preventive Medicine Preventive Medicine/Occupational Environmental Medicine; ATTEND Preventive Medicine Preventive Medicine/Occupational Environmental Medicine
DX: G40.219 Localization-related (focal) (partial) symptomatic epilepsy and epileptic syndromes with complex partial seizures, intractable, without status epilepticus (principal); E87.1 Hypo-osmolality and hyponatremia; F32.9 Major depressive disorder, single episode, unspecified; F43.10 Post-traumatic stress disorder, unspecified; F17.210 Nicotine dependence, cigarettes, uncomplicated; J45.909 Unspecified asthma, uncomplicated; F41.9 Anxiety disorder, unspecified; E87.5 Hyperkalemia; F60.3 Borderline personality disorder; R73.9 Hyperglycemia, unspecified; Z78.1 Physical restraint status
CPT/HCPCS: 36415; 70553; 80048; 80053; 80164-TC; 80307; 83735-TC; 84100-TC; 84484; 85007; 85025; 85027; 87081; 93005; 95816; 96360; 99285; A9579; J1953; J2060; J7030; J7050; J7060

== ENCOUNTER 2018-07-16 13:04 | Emergency (ER) | payer MEDICAID ==
[~2018-07-16] VITALS: Ht 180.3 cm; Wt 70.8 kg
[2018-07-16 13:04] VITALS: BP_SYST 119
[~2018-07-16 13:04] MED LIST changes: -CLON0.5T12 PO
[2018-07-16 13:50] VITALS: BP_SYST 119
== END 2018-07-16 13:50 | disposition home or self-care (01) ==
LOC: SED 13:04
DX: B34.9 Viral infection, unspecified (principal); J45.909 Unspecified asthma, uncomplicated; F41.9 Anxiety disorder, unspecified; F43.10 Post-traumatic stress disorder, unspecified; F32.9 Major depressive disorder, single episode, unspecified; Z79.899 Other long term (current) drug therapy
CPT/HCPCS: 99282